=== PATIENT | female | born 1995 | race Caucasian/White ===

== ENCOUNTER 2019-12-16 08:00 | Outpatient (CLI) | payer BC, OTHER ==
[2019-12-16 18:31] LABS: BASOPHILS % (AUTO) 0.3 %; EOSINOPHILS # (AUTO) 0.1 10^3/uL (0.0-0.7); EOSINOPHILS % (AUTO) 2.1 %; HGB - HEMOGLOBIN 12.8 g/dL (12.0-16.0); LYMPHOCYTES # (AUTO) 1.7 10^3/uL (1.5-3.5); MEAN CORPUSCULAR HEMOGLOBIN 31.4 pg (27.0-31.0); MEAN CORPUSCULAR HGB CONC 32.7 g/dL (32.0-36.0); MEAN CORPUSCULAR VOLUME 96.1 fL (81.0-99.0); MEAN PLATELET VOLUME 12.5 fL (7.9-10.8); MONOCYTES # (AUTO) 0.3 10^3/uL (0.0-1.0); MONOCYTES % (AUTO) 8.3 %; NEUTROPHILS # (AUTO) 1.3 10^3/uL (1.5-6.6); NEUTROPHILS % (AUTO) 39.3 %; PLT - PLATELET COUNT 213 10^3/uL (130-450); RED BLOOD COUNT 4.08 10^6/uL (4.20-5.40); RED CELL DISTRIBUTION WIDTH 12.5 % (12.0-15.0); WHITE BLOOD COUNT 3.4 x10^3/uL (4.8-10.8)
== END 2019-12-16 23:59 | disposition home or self-care (01) ==
LOC: LAB.WCP 08:00
PROVIDERS: ATTEND Family Medicine
DX: R53.83 Other fatigue (principal)
CPT/HCPCS: 36415; 85025

== ENCOUNTER 2020-11-09 13:56 | Outpatient (CLI) | payer OTHER | END 2020-11-09 13:57 | disposition home or self-care (01) | LOC: COV 13:56 | PROVIDERS: ATTEND Family Medicine | DX: Z20.828 Contact with and (suspected) exposure to other viral communicable diseases (principal) ==

== ENCOUNTER 2021-05-07 08:00 | Outpatient (CLI) | payer OTHER ==
[2021-05-07 18:12] LABS: BASOPHILS % (AUTO) 0.4 %; EOSINOPHILS % (AUTO) 0.9 %; HCT - HEMATOCRIT 38.8 % (37.0-47.0); MEAN CORPUSCULAR HEMOGLOBIN 33.3 pg (27.0-31.0); MEAN CORPUSCULAR HGB CONC 33.5 g/dL (32.0-36.0); MEAN CORPUSCULAR VOLUME 99.5 fL (81.0-99.0); MEAN PLATELET VOLUME 12.5 fL (7.9-10.8); MONOCYTES # (AUTO) 0.4 10^3/uL (0.0-1.0); MONOCYTES % (AUTO) 8.9 %; NEUTROPHILS # (AUTO) 3.2 10^3/uL (1.5-6.6); NEUTROPHILS % (AUTO) 68.8 %; PLT - PLATELET COUNT 208 10^3/uL (130-450); RED CELL DISTRIBUTION WIDTH 12.4 % (12.0-15.0); WHITE BLOOD COUNT 4.6 x10^3/uL (4.8-10.8)
[2021-05-07 18:22] LABS: ALBUMIN 4.5 g/dL (3.2-5.5); ALBUMIN/GLOBULIN RATIO 1.7 (1.0-2.2); BILIRUBIN,TOTAL 0.7 mg/dL (0.2-1.0); CALCIUM 9.7 mg/dL (8.5-10.3); CREATININE 0.6 mg/dL (0.4-1.0); POTASSIUM 3.6 mmol/L (3.5-5.0); TOTAL PROTEIN 7.1 g/dL (6.7-8.2)
[2021-05-07 18:34] LABS: THYROID STIMULATING HORMONE 2.61 uIU/mL (0.34-5.60)
[2021-05-07 18:35] LABS: FREE T3 3.52 pg/mL (2.5-3.9)
[2021-05-07 18:36] LABS: FREE T4 (FREE THYROXINE) 0.79 ng/dL (0.58-1.64)
[2021-05-07 21:06] LABS: CHLAMYDIA TRACHOMATIS DNA NEGATIVE (NEGATIVE); NEISSERIA GONORRHOEAE DNA NEGATIVE (NEGATIVE); TRICHOMONAS VAGINALIS DNA NEGATIVE (NEGATIVE)
[2021-05-10 09:41] LABS: HEPATITIS C ANTIBODY NON-REACTIVE
== END 2021-05-07 23:59 | disposition home or self-care (01) ==
LOC: LAB.WCP 08:00
PROVIDERS: ATTEND Family Medicine
DX: R63.6 Underweight (principal); Z11.3 Encounter for screening for infections with a predominantly sexual mode of transmission
CPT/HCPCS: 36415; 80053; 84439; 84443; 84481; 85025; 86592; 86803; 87389; 87491; 87591; 87661

== ENCOUNTER 2022-03-21 12:06 | Outpatient (CLI) | payer OTHER | END 2022-03-21 12:07 | disposition home or self-care (01) | LOC: RT 12:06 | PROVIDERS: ATTEND Psychiatry & Neurology Psychiatry | DX: Z79.899 Other long term (current) drug therapy (principal) | CPT/HCPCS: 93005 ==

== ENCOUNTER 2022-04-17 09:31 | Outpatient (CLI) | payer OTHER ==
[2022-04-17 12:13] LABS: LITHIUM 0.33 mmol/L
[2022-04-17 12:21] LABS: CALCIUM 9.7 mg/dL (8.5-10.3); CREATININE 0.7 mg/dL (0.4-1.0)
== END 2022-04-17 09:32 | disposition home or self-care (01) ==
LOC: LAB.N 09:31
PROVIDERS: ATTEND Psychiatry & Neurology Psychiatry
DX: Z79.899 Other long term (current) drug therapy (principal)
CPT/HCPCS: 36415; 80048; 80178; 84443

== ENCOUNTER 2022-04-21 09:44 | Outpatient (CLI) | payer OTHER ==
[2022-04-21 18:57] LABS: CHLAMYDIA TRACHOMATIS DNA NEGATIVE (NEGATIVE); NEISSERIA GONORRHOEAE DNA NEGATIVE (NEGATIVE); TRICHOMONAS VAGINALIS DNA NEGATIVE (NEGATIVE)
[2022-04-22 05:13] LABS: RPR Non Reactive (Non Reactive)
[2022-04-22 07:10] LABS: HIV SCREEN 4TH GENERATION Non Reactive (Non Reactive)
== END 2022-04-21 09:45 | disposition home or self-care (01) ==
LOC: LAB.N 09:44
PROVIDERS: ATTEND Family Medicine
DX: Z11.3 Encounter for screening for infections with a predominantly sexual mode of transmission (principal)
CPT/HCPCS: 86592; 87389; 87491; 87591; 87661